=== PATIENT | female | born 1995 | race Two or more races ===

== ENCOUNTER 2022-09-12 19:03 | Emergency (ER) | payer OTHER ==
[~2022-09-12] VITALS: Ht 149.9 cm; Wt 79.3 kg
[2022-09-12] MEDS ORDERED: TETRACAINE HCL 0.5% OPTH(EYE) SOLN 4ML LEFTEYE ONE (20:00)
[2022-09-12] MEDS ORDERED: FLUORESCEIN SOD OPTH TEST STRIP LEFTEYE ONE (20:00)
[2022-09-12] MEDS ORDERED: SODIUM CHLORIDE 0.9% 1,000 ML IV ONE (20:00)
[2022-09-12 20:27] VITALS: BP 128/78
[2022-09-12] MEDS ORDERED: ERY05OO OP (21:05)
== END 2022-09-13 23:40 | disposition home or self-care (01) ==
LOC: ER 19:03
DX: T15.92XA Foreign body on external eye, part unspecified, left eye, initial encounter (principal); F17.210 Nicotine dependence, cigarettes, uncomplicated; Z88.5 Allergy status to narcotic agent; X58.XXXA Exposure to other specified factors, initial encounter; Y93.89 Activity, other specified; Y92.89 Other specified places as the place of occurrence of the external cause; Y99.8 Other external cause status
CPT/HCPCS: 96360; 99284; J7030